=== PATIENT | male | born 1955 | race African-American/Black ===

== ENCOUNTER 2019-02-09 08:49 | Inpatient (IN) ==
[2019-02-09] MEDS ORDERED: Naloxone 0.4 MG/ML INJ IVP PRN (10:23)
[2019-02-09] MEDS ORDERED: Ondansetron 4 MG/2 ML VIAL IVP PRN (10:29)
[2019-02-09] MEDS ORDERED: D5% in Water 1,000 ML IVC PRN (10:31)
[2019-02-09] MEDS ORDERED: *HR* Dextrose 50 % in Water (Syg) 50 ML SYRINGE IVP PRN (10:31)
[2019-02-09] MEDS ORDERED: Dextrose Gel 15 GM/37.5 ML TUBE PO PRN ×2 (10:31)
--- NOTE | 2019-02-09 10:48 | Internal Med History&Physical ---
Date of Encounter: 02/09/19 Time of Encounter: 10:32 Internal Medicine - H&P: HPI Chief complaint: Abd pain Admitted From: Emergency Dept History of present illness: Yandel Sales is a 63 M w hx HTN, DM2, depression, who p/w abd pain. Pain began more almost 3 months ago and is mostly in LLQ. Episodic and crampy in nature but in last 2 days became significantly worse. Did have some N/V yesterday. Denies fevers, CP, diarrhea, hematochezia or melena, or rashes. He states that during the time of his abd pain, he's noted almost 20 lb weight loss and endorses night sweats. Was seeing his PCP and was supposed to have CT done but this has not yet happened. At time of my interview, he states he is comfortable but scared/worried and mostly just wants to know about his pancreas. In the OSH ED, vitals T 99.2, HR 81-96, RR 16-22, BP 150-160s/80s, satting high 90s% on RA. Labs notable for WBC 9, Hb 12, INR 1.2, Cr 1.56, BG 133, lipase 10. Urine was unremarkable. CT abd w contrast showed proximal sigmoid diverticulitis without obvious abscess but with tiny air bubbles unclear if nearby diverticuli or if microperf. It also showed nearby low attenuation area concerning for either intraluminal stool or edema or early abscess. Additionally, there is an abnormal soft tissue area in upper abd encasing the proximal celiac axis continguous with pancreatic head suspicious for neoplasm. Patient was given 2L fluid, started on cipro/flagyl, and transferred to [place]. Past Med Surg Social Fam HX - Past Medical History Medical history: diabetes, hypertension Psychiatric history: depression - Past Surgical History Additional surgical history: left foot sx x 2 - Social History Smoking Status: Never smoker Smokeless Tobacco Status: No Alcohol use: none Drug use: none Internal Medicine - H&P: Meds NovoLOG 0 units SQ TID 07/13/15 [History] Paroxetine [Paxil] 40 mg PO DAILY 07/13/15 [History] Insulin DETEMIR [Levemir Flextouch] 65 unit SQ DAILY 06/11/16 [History] Meclizine [Antivert] 25 mg PO TID PRN #20 tablet 06/11/16 [Rx] Promethazine [Phenergan] 12.5 mg PO Q8HR PRN #20 tablet 06/11/16 [Rx] amLODIPine [Norvasc] 10 mg PO DAILY 06/11/16 [History] Allergy/AdvReac Type Severity Reaction Status Date / Time [facility] Allergy Hives Verified 07/13/15 12:02 All Systems PM: A 10-system review of systems was performed and is negative for pertinent findings except as documented above in the HPI. - Constitutional Vitals: Vital Signs Temp Pulse Resp BP Pulse Ox 02/09/19 11:01 98.6 F 75 15 144/67 97 Intake and Output 02/08/19 02/09/19 02/09/19 23:59 07:59 15:59 Output Total 0 / 0 Balance 0 / 0 Output: Urine 0 / 0 Other: Weight 78.925 kg Patient Weight 02/09/19 23:59 Weight 78.925 kg Exam: General: NAD, good eye contact, well appearing, mild strabismus Head: Atraumatic, normocephalic. Face symmetric Eyes: EOMI, sclerae anicteric ENT: Mucous membranes dry. Normal oral mucosa and dentition. Trachea midline. Thoracic: No visible chest wall deformities. Normal breath sounds b/l, no wheezing or crackles Cardio: Normal S1 and S2, regular rate and rhythm, no murmurs. Abdomen: Soft, nondistended, bowel sounds present. No rebound or guarding. Does have mild tenderness lower and lower left abd Extremities: Warm, well perfused. DP pulses 2+ b/l. No clubbing, cyanosis. No edema Skin: Intact. No rashes, bruises, or ulcers Neuro: Awake, fully oriented. Good memory, concentration, attention. Speech fluent. CN II-XII grossly intact. Strength 5/5 in b/l UE and LE - Summary of Assessment and Plan Summary of Assessment and Plan: Yandel Sales is a 63 M w hx HTN, DM2, depression, who p/w acute on chronic abd pain, N/V, and CT showing diverticular inflammation concerning for acute diverticulitis, all in context of subacute weight loss and night sweats with CT showing possible posterior pancreatic head mass concerning for malignancy. Acute diverticulitis: abd tender LLQ but not firm/rigid - empiric cipro/flagyl - clear liquid diet - low threshold to re-scan and/or to involve GenSurg given possibility of early complications seen on CT 02/09 Likely mass of pancreatic head: - MRI pancreas protocol DIANNA on CKD2: truly unknown baseline but only previous measure if Cr 1.3, on admit is 1.55, will monitor and hydrate HTN: uncontrolled, not on home meds, possibly 2/2 pain so will wait to start HTN med like amlodipine until evaluation when pain better controlled DM2: diabetic diet, home basal plus SSI Depression: home paxil PPx: lovenox Activity: up ad janis FEN: ADA clears, MIVF LR@100 x2L Lines: PIV Consults: Code: Full Dispo: patient requires inpatient eval and management at this time. Anticipate 2-3 days. Will be homegoing
[2019-02-09] MEDS: Insulin LISPRO 300 UNITS/3 ML VIAL SQ SCH ×3 (11:42→20:27)
[2019-02-09] MEDS: *HR* OxyCODONE Immed Rel 5 MG TABLET PO PRN (12:06)
[2019-02-09] MEDS: Ringers Solution, Lactated 1,000 ML IVC SCH ×2 (12:06→23:43)
[2019-02-09] MEDS: metroNIDAZOLE 500 MG TABLET PO SCH ×2 (15:49→20:27)
[2019-02-09] MEDS: Acetaminophen 325 MG TABLET PO PRN (15:49)
[2019-02-10 04:36] LABS: Hematocrit 32.6 % (37.5-50.1); Hemoglobin 10.6 g/dL (12.9-16.9); Mean Corpuscular HGB Conc 32.5 g/dL (31.6-35.5); Mean Corpuscular Hemoglobin 27.2 pg (28.0-33.3); Mean Corpuscular Volume 83.8 fL (83.0-100.0); Mean Platelet Volume 10.2 fL (9.4-12.4); Platelet Count 138 K/mcL (140-400); Red Blood Count 3.89 M/mcL (4.19-5.50); White Blood Count 8.8 K/mcL (4.3-11.1)
[2019-02-10 04:55] LABS: Alanine Aminotransferase 91 Units/L (7-52); Albumin 3.2 g/dL (3.5-5.7); Albumin/Globulin Ratio 1.3 (1.1-2.2); Alkaline Phosphatase 67 Units/L (34-104); Aspartate Amino Transferase 57 Units/L (13-39); BUN/Creatinine Ratio 10 (6-26); Bilirubin,Total 0.9 mg/dL (0.3-1.0); Blood Urea Nitrogen 12 mg/dL (8-23); Calcium 8.5 mg/dL (8.6-10.3); Carbon Dioxide 29 mEq/L (23-29); Chloride 105 mEq/L (98-107); Globulin 2.4 g/dL (2.4-3.5); Glucose 110 mg/dL (70-105); Magnesium 1.8 mg/dL (1.6-2.6); Osmolality,Calculated 284 (280-300); Phosphorous 2.3 mg/dL (2.7-4.5); Potassium 4.1 mEq/L (3.5-5.1); Sodium 137 mEq/L (136-145); Total Protein 5.6 g/dL (6.4-8.9); eGFR For African Americans > 60 (> 60); eGFR For Non-African Americans > 60 (> 60)
[2019-02-10] MEDS: *HR* Enoxaparin 40 MG/0.4 ML SYRINGE SQ SCH (05:16)
[2019-02-10] MEDS: Insulin LISPRO 300 UNITS/3 ML VIAL SQ SCH ×4 (09:03→21:02)
[2019-02-10] MEDS: metroNIDAZOLE 500 MG TABLET PO SCH ×3 (09:14→20:57)
[2019-02-10] MEDS: *HR* OxyCODONE Immed Rel 5 MG TABLET PO PRN (09:14)
--- NOTE | 2019-02-10 11:20 | Oncology Inp Consult Note ---
<Frankie Geronimo - Last Filed: 02/10/19 16:23> Date of Encounter: 02/10/19 Time of Encounter: 16:23 - Data of Consult Requesting Physician: Bravo Morris Primary Care Provider: Yasmine Gruber Medications and Allergies Amlodipine Besylate 10 mg PO DAILY 02/10/19 [History] Ergocalciferol (VITAMIN D2) [Vitamin D2] 50,000 unit PO SA 02/10/19 [History] Insulin Degludec [Tresiba Flextouch U-200] 70 - 80 units SQ HS 02/10/19 [History] PARoxetine HCl [Paroxetine HCl] 40 mg PO DAILY 02/10/19 [History] Pravastatin Sodium 10 mg PO HS 02/10/19 [History] Valsartan 320 mg PO DAILY 02/10/19 [History] Zolpidem [Ambien] 10 mg PO HS 02/10/19 [History] Allergy/AdvReac Type Severity Reaction Status Date / Time sitagliptin [From ] Allergy Hives Verified 07/13/15 12:02 Consult Discharge Plan - Plan Referrals: Yasmine Gruber [Primary Care Provider] - Inpatient Charges Provider: Dr. Devi Geronimo Consult - Inpatient: [id number] - Attending Attestation I examined this patient and my medical decision-making was reviewed with the Advanced Practice Nurse. I agree with the documented findings, disposition and treatment plan as described except to the extent set forth below. Abdominal pain improving Will obtain a CT Neck/Chest w/ contrast to complete staging Will check iron studies, B12 level, folate level, CA 19-9, AF GI c/s for EUS/ biopsy of pancreatic mass Thank you for the consult. <Angelita Martin - Last Filed: 02/10/19 16:55> Date of Encounter: 02/10/19 Assessment and Plan (1) Pancreatic mass Status: Acute Assessment and plan: MRI of the abdomen which revealed an infiltrative mass extending from the posterior margin of the pancreatic head and uncinate process encases accessory hepaticopancreatic branch artery, mass measures 28 x 37 mm, presumed metastatic adenopathy at the lorenzo hepatis, no discrete suspicious hepatic lesion involvement is evident, suboptimal exam degraded by breathing motion. AST-57 ALT-91 Total bili-0.9 Alk Phos- 67 Plan: Check 19-9, AFP and CEA Anemia workup-B12, folate, iron, ferritin Consult GI for EUS with FNA biopsy--may need to hold off on bx until diver ticulitis improved-appreciate GI recs CT chest/neck with IV contrast for staging Continue oxycodone as needed for pain, zofran as needed for nausea (2) Diverticulitis large intestine Status: Acute Assessment and plan: CT abd w contrast showed proximal sigmoid diverticulitis without obvious abscess but with tiny air bubbles unclear if nearby diverticuli or if microperf. Appears to be clinically improving with conservative management and IV ATB Hospitalist team reviewed scans with surgery-recommend re-imaging if no improvement, continue ATB Per surgery, patient should have colonoscopy completed in 4 weeks to ensure no malignant involvement of diverticular region Qualifiers: Diverticulitis bleeding: without bleeding Diverticulitis complication: unspecified complication status Qualified Code(s): K57.32 - Diverticulitis of large intestine without perforation or abscess without bleeding - Data of Consult Patient: new to practice Consult date: 02/10/19 Requesting Physician: Estuardo Silver Primary Care Provider: Yasmine Gruber - Consult Narrative Reason for consult: pancreatic mass History of present illness: 63 year old male with past medical history significant for hypertension, diabetes mellitus type 2, depression, hereditary RP/legally blind presented to ER with worsening abdominal pain. States that he has had diffuse but mostly left lower quadrant abdominal pain that began nearly 3 months ago. Significantly worsened over the past several days leading to presentation to the emergency room. He has had some nausea and vomiting recently over the past several days. Denies fever, chest pain, diarrhea, hematochezia or melena. He does endorse history of a 20 pound weight loss and night sweats. He had a CT of the abdomen in the ER which noted proximal sigmoid diverticulitis without obvious abscess but with unclear findings of tiny air bubble second represent nearby diverticula versus tiny focus of extraluminal air. Additionally, this noted an abnormal soft tissue focus in the upper dimensional encasing the proximal celiac axis concerning for pancreatic head mass. This was followed by a MRI of the abdomen which revealed an infiltrative mass extending from the posterior margin of the pancreatic head and uncinate process encases accessory hepaticopancreatic branch artery, mass measures 28 x 37 mm, presumed metastatic adenopathy at the lorenzo hepatis, no discrete suspicious hepatic lesion involvement is evident, suboptimal exam degraded by breathing motion. Mr. Sales denies any personal family history of cancer. He is a nonsmoker, denies alcohol use. He is disabled due to his possible history of hereditary retinitis pigmentosa and is legally blind due to this. He does not drive, but remains active at home, goes shopping etc. Past Med Surg Social Fam HX - Past Medical History Medical history: diabetes, hypertension Psychiatric history: depression - Past Surgical History Additional surgical history: left foot sx x 2 - Social History Smoking Status: Never smoker Smokeless Tobacco Status: No Alcohol use: none Drug use: none Constitutional: Present: anorexia, fatigue, malaise, night sweats, weight loss. Absent: chills, fever(s) Eyes: Present: as per HPI, other (legally blind, h/o hereditary RP) Cardiovascular: Absent: chest pain Respiratory: Absent: cough, dyspnea Gastrointestinal: Present: as per HPI, abdominal pain, nausea, vomiting. Absent: hematemesis, hematochezia, loose stools, melena, odynophagia Genitourinary: Absent: dysuria, hematuria Musculoskeletal: Present: muscle weakness Integumentary: Absent: rash, wounds Neurological: Absent: dizziness, focal weakness, headache(s) Psychiatric: Present: as per HPI Endocrine: Present: as per HPI, fatigue Hematologic/Lymphatic: Present: as per HPI. Absent: lymphadenopathy Oncology - Exam - Constitutional General appearance: cooperative, no acute distress, no febrile - Head Head exam: Present: atraumatic - ENT ENT exam: Present: mucous membranes moist, normal oropharynx - Respiratory Respiratory exam: Present: CTAB. Absent: respiratory distress - Cardiovascular Cardiovascular exam: Present: RRR, +S1, +S2 - GI/Abdominal GI/Abdominal exam: Present: normal bowel sounds, soft, tenderness (diffuse tenderness). Absent: rebound, rigid - Extremities Exam Extremities exam: Present: normal inspection. Absent: calf tenderness
--- NOTE | 2019-02-10 11:54 | Internal Med Progress Note ---
Hospitalist Progress Note - Encounter Date of Encounter: 02/10/19 Time of Encounter: 11:52 - Subjective Interval History: Patient feels improved today compared to when he came in. Worried about his prognosis given probable pancreatic cancer. - Exam Vitals: Temp Pulse Resp BP Pulse Ox 99.1 F 72 15 121/67 97 02/10/19 07:06 02/10/19 07:06 02/10/19 07:06 02/10/19 07:06 02/10/19 07:06 Exam: General: Ill-appearing and in no acute distress HEENT: No erythema of posterior pharynx. No exudates. Lymphatics: No mandibular or cervical lymphadenopathy Cardiovascular: RRR. No murmurs. No chest wall tenderness. Lungs: Clear to auscelltation bilaterally. Regular chest rise. Abdomen: Mild LLQ tenderness. No rebound or gaurding. Nl bowel sounds. Extremities: No edema. 2+ pulses radial and pedal pulses Skin: No rahses, abrasions, or contusions. Nl cap refill. Psych: Nl attention. A&Ox3 Neuro: sole splitter II-XII intact. 5/5 strength. Sensation to light touch and pinprick intact. - Assessment and Plan (1) Diverticulitis large intestine Current Visit: No Status: Acute Assessment and Plan: Patient presented with subacute onset of left lower quadrant pain in the setting of stable vitals on admission (did not meet sepsis criteria), left lower quad rant abdominal pain on exam, and CT abd w contrast showed proximal sigmoid diverticulitis without obvious abscess but with tiny air bubbles unclear if nearby diverticuli or if microperf. -Clinically improved with IV antibiotics -Reviewed CT scan with general surgery and believe patient will do well with antibiotics alone PLAN: - Cipro/flagyl - Clear liquid diet - Re-image if not improving - Per surgery, patient should have colonoscopy completed in 4 weeks to ensure no malignant involvement of diverticular region (2) Pancreatic mass Current Visit: Yes Status: Acute Assessment and Plan: Patient presents 6 months of weight loss and night sweats and found to have a pancreatic head mass on imaging of the abdomen. -MRI of abdomen with infiltrative mass extending from posterior margin of pancreatic head to uncinate process encasing accessory hepatopancreatic branch artery with metastatic adenopathy -Discussed with general surgery. Likely would not be a surgical candidate but will discuss case at tumor board -Consult that oncology for further recommendations as well PLAN: - Consult to oncology, appreciate recommendations (3) Blindness Current Visit: Yes Status: Acute DVT Prophylaxis: LMWH Internal Medicine: Result - Labs CBC & Chem 7: 02/10/19 04:13 02/10/19 04:13 Labs: Short CBC 02/10/19 Range/Units 04:13 WBC 8.8 (4.3-11.1) K/mcL Hgb 10.6 L (12.9-16.9) g/dL Hct 32.6 L (37.5-50.1) % Plt Count 138 L (140-400) K/mcL BMP 02/10/19 04:13 Sodium 137 Potassium 4.1 Chloride 105 Carbon Dioxide 29 BUN 12 Creatinine 1.19 Glucose 110 H Calcium 8.5 L Liver Function 02/10/19 Range/Units 04:13 Total Bilirubin 0.9 (0.3-1.0) mg/dL AST 57 H (13-39) Units/L ALT 91 H (7-52) Units/L Alkaline Phosphatase 67 (34-104) Units/L Albumin 3.2 L (3.5-5.7) g/dL - Impressions Impressions Abdomen MRI 02/09/19 11:10 IMPRESSION: 1. Infiltrative mass extending from the posterior margin of the pancreatic head and uncinate process encases accessory hepaticopancreatic branch artery. 2. Presumed metastatic adenopathy at the lorenzo hepatis. 3. No discrete suspicious hepatic lesion evident. 4. Mild intra and extrahepatic bile duct dilatation status post cholecystectomy typical of reservoir effect. 5. Suboptimal exam with many of the image series degraded by breathing motion blurring detail. D/ / Sina Velasquez / Sina Velasquez Interpreting Provider: Sina Velasquez Consult Discharge Plan - Plan Referrals: Yasmine Gruber [Primary Care Provider] - (1) Diverticulitis large intestine Qualifiers: Diverticulitis bleeding: without bleeding Diverticulitis complication: unspecified complication status Qualified Code(s): K57.32 - Diverticulitis of large intestine without perforation or abscess without bleeding
[2019-02-10] MEDS ORDERED: Isovue-370 500 ML BOTTLE IVP ONE (14:00)
[2019-02-10] MEDS: Acetaminophen 325 MG TABLET PO PRN (20:59)
[2019-02-11 05:46] LABS: % Iron Saturation 9 % (20-55); Iron 18 mcg/dL (65-175); Lactate Dehydrogenase 120 Units/L (140-271); Transferrin 143 mg/dL (203-362)
[2019-02-11] MEDS: *HR* Enoxaparin 40 MG/0.4 ML SYRINGE SQ SCH (05:49)
[2019-02-11 06:05] LABS: Ferritin 579 ng/mL (20-250)
[2019-02-11 06:10] LABS: Folate 9.3 ng/mL (3.0-16.0)
[2019-02-11 09:30] LABS: Basophils % 0.3 %; Eosinophils # 0.3 K/mcL (0.0-0.6); Eosinophils % 3.9 %; Hematocrit 35.4 % (37.5-50.1); Hemoglobin 11.4 g/dL (12.9-16.9); Immature Granulocytes % 0.3 % (0-4); Lymphocytes # 0.7 K/mcL (0.6-4.6); Lymphocytes % 10.5 %; Mean Corpuscular HGB Conc 32.2 g/dL (31.6-35.5); Mean Corpuscular Hemoglobin 26.8 pg (28.0-33.3); Mean Corpuscular Volume 83.3 fL (83.0-100.0); Mean Platelet Volume 10.3 fL (9.4-12.4); Monocytes # 0.5 K/mcL (0.0-1.3); Monocytes % 7.7 %; Platelet Count 159 K/mcL (140-400); Red Blood Count 4.25 M/mcL (4.19-5.50); Red Cell Distribution Width 13.6 % (11.5-14.5); Segmented Neutrophils % 77.3 %; White Blood Count 6.5 K/mcL (4.3-11.1)
[2019-02-11 09:50] LABS: Alanine Aminotransferase 55 Units/L (7-52); Albumin 3.4 g/dL (3.5-5.7); Albumin/Globulin Ratio 1.2 (1.1-2.2); Alkaline Phosphatase 73 Units/L (34-104); Aspartate Amino Transferase 20 Units/L (13-39); BUN/Creatinine Ratio 10 (6-26); Bilirubin,Total 0.5 mg/dL (0.3-1.0); Blood Urea Nitrogen 12 mg/dL (8-23); Calcium 8.9 mg/dL (8.6-10.3); Carbon Dioxide 28 mEq/L (23-29); Chloride 103 mEq/L (98-107); Globulin 2.9 g/dL (2.4-3.5); Glucose 139 mg/dL (70-105); Osmolality,Calculated 286 (280-300); Sodium 137 mEq/L (136-145); Total Protein 6.3 g/dL (6.4-8.9); eGFR For African Americans > 60 (> 60); eGFR For Non-African Americans 58 (> 60)
[2019-02-11] MEDS: Insulin LISPRO 300 UNITS/3 ML VIAL SQ SCH ×4 (10:08→20:56)
[2019-02-11] MEDS: metroNIDAZOLE 500 MG TABLET PO SCH ×3 (10:11→20:57)
[2019-02-11] MEDS: Iron Sucrose Complex 400 MG in 0.9 % Sodium Chloride 250 ML IVPB SCH (11:52)
--- NOTE | 2019-02-11 12:13 | Gastroenterology Consult Note ---
<Bravo Bradford - Last Filed: 02/11/19 12:10> Date of Encounter: 02/11/19 Time of Encounter: 10:30 - Assessment and plan (1) Pancreatic mass Current Visit: Yes Status: Acute Assessment and plan: CT A/P showed diverticulitis involving the proximal sigmoid colon but with tiny bubbles of air adjacent to diseased colon may be related to diverticula, however tiny focus of extraluminal air not totally excluded, abnormal soft tissue attenuation in the upper abdomen encasing proximal celiac axis and immediately contiguous with the posterior aspect of the pancreatic head concerning for neoplasm. MRI showed infiltrative mass extending from the posterior margin of the pancreatic head and uncinate process encases accessory hepaticopancreatic branch artery, presumed metastatic adenopathy at the lorenzo hepatis, no discrete suspicious hepatic lesion. TB 0.9, AST 57, ALT 91, AP 67, CEA 1.9. AFP and CA 19-9 pending. Plan for EUS with FNA today. Keep patient NPO. Patient received dose of Lovenox today, will discuss with Dr. Singh. (2) Diverticulitis large intestine Current Visit: No Status: Acute Assessment and plan: Noted on CT. Continue Cipro and Flagyl. Recommend daily fiber supplement. Consider colonoscopy as outpatient. Qualifiers: Diverticulitis bleeding: without bleeding Diverticulitis complication: unspecified complication status Qualified Code(s): K57.32 - Diverticulitis of large intestine without perforation or abscess without bleeding - Time Spent With Patient Total time spent is greater than 50% in coordination of care (as documented) at patient's floor/unit and/or counseling patient: GI History of Present Illness - Data of Consult Patient: new to practice Consult date: 02/11/19 Requesting Physician: Bravo Morris - Consult Narrative Reason for consult: Pancreatic head mass History of present illness: Mr. Sales is a 63 year old male with PMHx of DM, HTN who presneted to the ED with complaints of worsening abdominal pain, 20 lbs weight loss, and night s weats. No fever, chills, chest pain, shortness of breath, melena, or hematochezia. CT A/P showed diverticulitis involving the proximal sigmoid colon but with tiny bubbles of air adjacent to diseased colon may be related to diverticula, however tiny focus of extraluminal air not totally excluded, abn ormal soft tissue attenuation in the upper abdomen encasing proximal celiac axis and immediately contiguous with the posterior aspect of the pancreatic head concerning for neoplasm. MRI showed infiltrative mass extending from the posterior margin of the pancreatic head and uncinate process encases accessory hepaticopancreatic branch artery, presumed metastatic adenopathy at the lorenzo hepatis, no discrete suspicious hepatic lesion. Patient denies abdominal pain this morning, and reports feeling well today. Procedure: No record NSAIDs: None Anticoagulation: None Past Med Surg Social Fam HX - Past Medical History Medical history: diabetes, hypertension Psychiatric history: depression - Past Surgical History Additional surgical history: left foot sx x 2 - Social History Smoking Status: Never smoker Smokeless Tobacco Status: No Alcohol use: none Drug use: none - Gastrointestinal Gastrointestinal: Present: as per HPI - Constitutional Constitutional: as per HPI - EENT Eyes: as per HPI Ears: Present: as per HPI Nose, mouth and throat: Present: as per HPI - Cardiovascular Cardiovascular ROS: Present: as per HPI - Respiratory Respiratory IM: Present: as per HPI - Genitourinary Genitourinary: Absent: change in color, Urinary frequency - Neurological ROS Neurological GI: Present: as per HPI - Hematologic/Lymphatic Hematologic/Lymphatic pediatric: Present: as per HPI - Musculoskeletal Musculoskeletal ROS GI: Present: as per HPI - Integumentary Integumentary GI: Present: as per HPI - Psychiatric ROS Psychiatric GI: Present: as per HPI - Endocrine Endocrine IM: Present: as per HPI - Constitutional Vitals: Temp Pulse Resp BP Pulse Ox 98.0 F 67 20 171/90 99 02/11/19 11:46 02/11/19 11:46 02/11/19 11:46 02/11/19 11:46 02/11/19 11:46 General appearance: Present: cooperative, A&O X 3, no acute distress, answers questions appropriately - Head Head exam: Present: atraumatic, normocephalic - Eye Eye exam: Present: normal appearance, sclera anicteric - ENT ENT exam: Present: mucous membranes dry - Neck Neck exam general surgery: Present: normal inspection, trachea midline - Respiratory Respiratory exam: Present: CTAB. Absent: rales, rhonchi, wheezes - Cardiovascular Cardiovascular exam: Present: RRR, +S1, +S2 - GI/Abdominal GI/Abdominal exam: Present: soft, no peritoneal signs. Absent: distended, firm, guarding, tenderness - Rectal Rectal exam: Present: deferred - Extremities Exam Extremities exam: Present: warm - Neurological Exam Neurological exam: Present: no focal deficits - Psychiatric Psychiatric exam: Present: normal affect, normal mood - Skin Skin exam: Present: dry, intact, normal color, warm Results - Labs CBC & Chem 7: 02/11/19 09:13 02/11/19 09:13 Labs: Last Result 02/11/19 02/11/19 02/11/19 04:25 04:25 04:25 Calcium Iron 18 L % Saturation 9 L Transferrin 143 L Ferritin 579 H Vitamin B12 254 Folate 9.3 02/11/19 09:13 Calcium 8.9 Iron % Saturation Transferrin Ferritin Vitamin B12 Folate Entire Visit 02/11/19 02/11/19 02/11/19 04:25 04:25 09:13 Hgb 11.4 L Hct 35.4 L Ferritin 579 H Total Bilirubin AST ALT Folate 9.3 02/11/19 09:13 Hgb Hct Ferritin Total Bilirubin 0.5 AST 20 ALT 55 H Folate - Impressions Impressions Chest CT 02/10/19 14:00 IMPRESSION: Trace bilateral pleural effusions with minimal bilateral dependent lower lobe airspace disease, likely atelectasis. No suspicious intrathoracic abnormality. D/ / Letitia Land Cha, MD / Letitia Land Cha, MD Interpreting Provider: Letitia Land Cha, MD Soft Tissue Neck CT 02/10/19 14:00 IMPRESSION: Circumferential wall thickening of the upper esophagus. Correlate for esophagitis. Otherwise, no acute abnormality identified. D/ / Dez Ruff MD / Dez Ruff MD Interpreting Provider: Dez Ruff MD Consult Discharge Plan - Plan Referrals: Yasmine Gruber [Primary Care Provider] - <David Singh - Last Filed: 02/11/19 18:26> Date of Encounter: 02/11/19 Time of Encounter: 13:00 - Time Spent With Patient Total time spent is greater than 50% in coordination of care (as documented) at patient's floor/unit and/or counseling patient: GI History of Present Illness - Data of Consult Requesting Physician: Bravo Morris - Consult Narrative History of present illness: Mr. Sales is a 63 year old male - Constitutional Vitals: Temp Pulse Resp BP Pulse Ox 99.4 F 81 16 155/81 94 02/11/19 18:21 02/11/19 18:21 02/11/19 18:21 02/11/19 18:21 02/11/19 18:21 Results - Labs CBC & Chem 7: 02/11/19 09:13 02/11/19 09:13 Labs: Last Result 02/11/19 09:13 Calcium 8.9 Entire Visit 02/11/19 02/11/19 09:13 09:13 Hgb 11.4 L Hct 35.4 L Total Bilirubin 0.5 AST 20 ALT 55 H - Attending Attestation I have personally performed a face to face evaluation on this patient. I have reviewed and agree with the care plan. History and Exam by me shows: Patient seen and his imaging has been reviewed. Complaining of pain in the left lower quadrant no upper abdominal pain. On examination: Left lower quadrant tenderness assessment; patient with pancreatic head mass #2 diverticulitis. Recommendation: Continue IV antibiotic for his diverticulitis patient a colonoscopy done by Dr. Tamayo at [facility] in July. EUS with FNA of the pancreatic mass today
--- NOTE | 2019-02-11 12:42 | Anesthesia Evaluation PreOp ---
Date of Encounter: 02/11/19 Time of Encounter: 13:57 - Past History Planned Operation: EUS Cardiac History: HTN Pulmonary History: Denies Any Significant HX GIS INSTRUCTOR History: Other (depression, hereditary RP) Other Medical History: Diabetes Type II, Other (pancreatic mass) Anesthesia History: No Prior Anesthetic Complications, Past Anesthesia Alcohol Use: none Drug use: none Medications and Allergies Amlodipine Besylate 10 mg PO DAILY 02/10/19 [History] Ergocalciferol (VITAMIN D2) [Vitamin D2] 50,000 unit PO SA 02/10/19 [History] Insulin Degludec [Tresiba Flextouch U-200] 70 - 80 units SQ HS 02/10/19 [History] PARoxetine HCl [Paroxetine HCl] 40 mg PO DAILY 02/10/19 [History] Pravastatin Sodium 10 mg PO HS 02/10/19 [History] Valsartan 320 mg PO DAILY 02/10/19 [History] Zolpidem [Ambien] 10 mg PO HS 02/10/19 [History] Allergy/AdvReac Type Severity Reaction Status Date / Time sitagliptin [From Jun] Allergy Hives Verified 07/13/15 12:02 - Meds/Allergy Pre-op Review Medications Reviewed: Yes Allergies Reviewed: Yes Beta Blockers on Current Med List: No Anesthesia Results - Labs 02/11/19 09:13 02/11/19 09:13 - Imaging EKG: report reviewed Anesthesia Exam Vital Signs/O2 Sat/Glucose, Most Recent Temp Pulse Resp BP Pulse Ox 98.0 F 67 20 171/90 99 02/11/19 11:46 02/11/19 11:46 02/11/19 11:46 02/11/19 11:46 02/11/19 11:46 Blood Glucose* 162 Weight: 78 kg NPO (# of Hours): > 8 hr - HEENT Pupil (Motor): Pupils equal Mallampati: II Teeth: Normal Oral Opening: Greater than 3 - GIS INSTRUCTOR LOC: Oriented - Cardiac Rhythm: Regular Murmur: None - Pulmonary Breath Sounds: bilateral Clear Respiratory Effort: Symmetrical Anesthesia Assess/Plan ASA Score: 2 Level of consciousness: Cooperative, Oriented Anesthetic Plan: General Monitoring Plan: Standard Monitors Recovery Plan: PACU
[2019-02-11] MEDS ORDERED: *HR* Propofol 200 MG/20 ML VIAL IVP ONE (13:11)
[2019-02-11] MEDS ORDERED: *HR* FentaNYL (PF) 100 MCG/2 ML VIAL ONE (13:11)
[2019-02-11] MEDS ORDERED: *HR* Succinylcholine 200 MG/10 ML VIAL IVP ONE (13:12)
[2019-02-11] MEDS ORDERED: Lidocaine -MPF 2% 2 ML VIAL ONE (13:12)
[2019-02-11] MEDS ORDERED: Lidocaine -MPF 4% 5 ML AMPUL ONE (13:15)
[2019-02-11] MEDS ORDERED: Dexamethasone 4 MG/ML VIAL ONE (13:31)
[2019-02-11] MEDS ORDERED: Ondansetron 4 MG/2 ML VIAL ONE (13:31)
[2019-02-11] MEDS ORDERED: Albuterol 2.5 MG/3 ML NEBULIZER IH ONE (13:58)
[2019-02-11] MEDS ORDERED: *HR* FentaNYL (PF) 100 MCG/2 ML VIAL IVP PRN (13:58)
[2019-02-11] MEDS ORDERED: *HR* Promethazine 25 MG/ML VIAL IVP PRN (13:58)
[2019-02-11] MEDS ORDERED: Ondansetron 4 MG/2 ML VIAL IVP ONE (13:58)
[2019-02-11] MEDS: 0.9 % Sodium Chloride 1,000 ML IVC SCH (14:15)
--- NOTE | 2019-02-11 15:02 | Internal Med Progress Note ---
Hospitalist Progress Note - Encounter Date of Encounter: 02/11/19 Time of Encounter: 15:00 - Subjective Interval History: Patient feels fine this morning. Abdominal pain has largely resolved. - Exam Vitals: Temp Pulse Resp BP Pulse Ox 98.0 F 67 18 175/95 97 02/11/19 13:54 02/11/19 13:54 02/11/19 13:54 02/11/19 13:54 02/11/19 13:54 Exam: General: Ill-appearing and in no acute distress HEENT: No erythema of posterior pharynx. No exudates. Lymphatics: No mandibular or cervical lymphadenopathy Cardiovascular: RRR. No murmurs. No chest wall tenderness. Lungs: Clear to auscelltation bilaterally. Regular chest rise. Abdomen: Mild LLQ tenderness. No rebound or gaurding. Nl bowel sounds. Extremities: No edema. 2+ pulses radial and pedal pulses Skin: No rahses, abrasions, or contusions. Nl cap refill. Psych: Nl attention. A&Ox3 Neuro: tab machine operator II-XII intact. 5/5 strength. Sensation to light touch and pinprick intact. - Assessment and Plan (1) Diverticulitis large intestine Current Visit: No Status: Acute Assessment and Plan: Patient presented with subacute onset of left lower quadrant pain in the setting of stable vitals on admission (did not meet sepsis criteria), left lower quadrant abdominal pain on exam, and CT abd w contrast showed proximal sigmoid diverticulitis without obvious abscess but with tiny air bubbles unclear if nearby diverticuli or if microperf. -Clinically improved with IV antibiotics -Reviewed CT scan with general surgery and believe patient will do well with antibiotics alone -Doing well - will switch patient to oral antibiotics PLAN: - Cipro/flagyl IV --> oral - Clear liquid diet --> General diet - Per surgery, patient should have colonoscopy completed in 4 weeks to ensure no malignant involvement of diverticular region (2) Pancreatic mass Current Visit: Yes Status: Acute Assessment and Plan: Patient presents 6 months of weight loss and night sweats and found to have a pancreatic head mass on imaging of the abdomen. -MRI of abdomen with infiltrative mass extending from posterior margin of pancreatic head to uncinate process encasing accessory hepatopancreatic branch artery with metastatic adenopathy -Discussed with general surgery. Likely would not be a surgical candidate but will discuss case at tumor board -Consulted oncology, recommend biopsy: Going for biopsy today with GI PLAN: - Biopsy today - Laboratory w/u per oncology - Oncology following, appreciate recommendations (3) Blindness Current Visit: Yes Status: Acute DVT Prophylaxis: LMWH Internal Medicine: Result - Labs CBC & Chem 7: 02/11/19 09:13 02/11/19 09:13 Labs: Short CBC 02/11/19 Range/Units 09:13 WBC 6.5 (4.3-11.1) K/mcL Hgb 11.4 L (12.9-16.9) g/dL Hct 35.4 L (37.5-50.1) % Plt Count 159 (140-400) K/mcL Neutrophils # 5.0 (1.6-8.9) K/mcL BMP 02/11/19 09:13 Sodium 137 Potassium 4.0 Chloride 103 Carbon Dioxide 28 BUN 12 Creatinine 1.25 Glucose 139 H Calcium 8.9 Liver Function 02/11/19 Range/Units 09:13 Total Bilirubin 0.5 (0.3-1.0) mg/dL AST 20 (13-39) Units/L ALT 55 H (7-52) Units/L Alkaline Phosphatase 73 (34-104) Units/L Albumin 3.4 L (3.5-5.7) g/dL - Impressions Impressions Chest CT 02/10/19 14:00 IMPRESSION: Trace bilateral pleural effusions with minimal bilateral dependent lower lobe airspace disease, likely atelectasis. No suspicious intrathoracic abnormality. D/ / Letitia Land Cha, MD / Letitia Land Cha, MD Interpreting Provider: Letitia Land Cha, MD Soft Tissue Neck CT 02/10/19 14:00 IMPRESSION: Circumferential wall thickening of the upper esophagus. Correlate for esophagitis. Otherwise, no acute abnormality identified. D/ / Dez Ruff MD / Dez Ruff MD Interpreting Provider: Dez Ruff MD Consult Discharge Plan - Plan Referrals: Yasmine Gruber [Primary Care Provider] - (1) Diverticulitis large intestine Qualifiers: Diverticulitis bleeding: without bleeding Diverticulitis complication: unspecified complication status Qualified Code(s): K57.32 - Diverticulitis of large intestine without perforation or abscess without bleeding
[2019-02-12] MEDS: *HR* Enoxaparin 40 MG/0.4 ML SYRINGE SQ SCH (05:59)
[2019-02-12] MEDS: Insulin LISPRO 300 UNITS/3 ML VIAL SQ SCH ×3 (07:25→16:33)
[2019-02-12] MEDS: Iron Sucrose Complex 400 MG in 0.9 % Sodium Chloride 250 ML IVPB SCH (07:28)
[2019-02-12] MEDS: metroNIDAZOLE 500 MG TABLET PO SCH ×2 (07:32→13:56)
[2019-02-12] MEDS ORDERED: amLODIPine 5 MG TABLET PO SCH (09:00)
[2019-02-12] MEDS ORDERED: Valsartan 160 MG TABLET PO SCH (09:00)
--- NOTE | 2019-02-12 09:55 | Anesthesia Evaluation Post Op ---
Date of Encounter: 02/11/19 Time of Encounter: 15:10 - Vital Signs Vital Signs: Vital Signs/O2 Sat/Glucose, Most Recent Temp Pulse Resp BP Pulse Ox 98.0 F 68 17 153/85 96 02/12/19 06:57 02/12/19 06:57 02/12/19 06:57 02/12/19 06:57 02/12/19 06:57 Blood Glucose* 220 - Lungs Lungs: Clear Ascult./Percussion - Airway Airway: Non-obstructed - Cardiovascular Regular Rate - Mental Status Mental Status: Baseline Status - Pain Pain Scale: 0 - Nausea Vomiting Nausea Vomiting: Not Present - Hydration Hydration: NPO - Discharge PostOp Status: Transfer Patient to floor
[2019-02-12] MEDS: 0.9 % Sodium Chloride 1,000 ML IVC SCH (10:15)
--- NOTE | 2019-02-12 11:16 | Gastroenterology Progress Note ---
<Johanne Dubon - Last Filed: 02/12/19 11:14> Date of Encounter: 02/12/19 Time of Encounter: 11:14 - Assessment and plan (1) Pancreatic mass Current Visit: Yes Status: Acute Assessment and plan: CT A/P showed diverticulitis involving the proximal sigmoid colon but with tiny bubbles of air adjacent to diseased colon may be related to diverticula. Abnormal soft tissue attenuation in the upper abdomen encasing proximal celiac axis and immediately contiguous with the posterior aspect of the pancreatic head concerning for neoplasm. MRI showed infiltrative mass extending from the posterior margin of the pancreatic head and uncinate process encases accessory hepaticopancreatic branch artery, presumed metastatic adenopathy at the lorenzo hepatis, no discrete suspicious hepatic lesion. Elevated ferritin appears to have iron deficiency anemia of chronic disease AFP within normal limits at 2 CA 19-9 within normal limits at 35 and CEA 1.9 Underwent EUS with FNA yesterday Pathology was at bedside to review biopsy samples concerning for malignancy Cytology still pending Would benefit from ERCP later outpatient given concerning for obstruction due to the large size of the mass - Time Spent With Patient Total time spent is greater than 50% in coordination of care (as documented) at patient's floor/unit and/or counseling patient: - Subjective Interval history: Mr. Sales was seen at bedside this morning was sitting comfortably in a chair. He was inquiring about his ultrasound-guided pancreatic biopsy yesterday. We discussed at length of what the mass appeared to look like under the ultrasound and concerning for malignancy although needs to be confirmed with cytology. He had no further questions denied any developed pain nausea or emesis. - Constitutional Vitals: Temp Pulse Resp BP Pulse Ox 98.0 F 68 17 153/85 96 02/12/19 06:57 02/12/19 06:57 02/12/19 06:57 02/12/19 06:57 02/12/19 06:57 General appearance: Present: cooperative, A&O X 3, no acute distress, answers questions appropriately - Head Head exam: Present: atraumatic, normal inspection - Eye Eye exam: Present: EOMI, sclera anicteric. Absent: conjunctival injection - ENT ENT exam: Present: mucous membranes moist, normal oropharynx - Neck Neck exam general surgery: Present: full ROM, trachea midline. Absent: tenderne ss - Respiratory Respiratory exam: Present: CTAB. Absent: rhonchi, wheezes - Cardiovascular Cardiovascular exam: Present: RRR, +S1, +S2 - GI/Abdominal GI/Abdominal exam: Present: normal bowel sounds, soft. Absent: tenderness - Skin Skin exam: Present: dry, intact Results - Labs CBC & Chem 7: 02/11/19 09:13 02/11/19 09:13 Labs: Entire Visit 02/10/19 09:26 CA 19-9 Antigen 35 Consult Discharge Plan - Plan Referrals: Eben Carter MD [Partnered Physician] - (Web request. Office will call patient with date and time of appointment. Thank you) Yasmine Gruber [Primary Care Provider] - (Called and left office a message to call patient with date and time of appointment. Thank you) Prescriptions: Ciprofloxacin [Cipro] 500 mg PO BID 8 Days #16 tablet metroNIDAZOLE [Flagyl] 500 mg PO TID 8 Days #24 tablet Psyllium Husk [Metamucil] 0.52 gm PO DAILY #60 capsule Polyethylene Glycol 3350 [MiraLAX] 17 gm PO DAILY #60 powd.pack <David Singh - Last Filed: 02/12/19 16:44> Date of Encounter: 02/12/19 Time of Encounter: 15:00 - Time Spent With Patient Total time spent is greater than 50% in coordination of care (as documented) at patient's floor/unit and/or counseling patient: - Constitutional Vitals: Temp Pulse Resp BP Pulse Ox 98.2 F 68 18 147/74 97 02/12/19 11:53 02/12/19 11:53 02/12/19 11:53 02/12/19 11:53 02/12/19 11:53 Results - Labs CBC & Chem 7: 02/11/19 09:13 02/11/19 09:13 Labs: Entire Visit 02/10/19 09:26 CA 19-9 Antigen 35 - Attending Attestation I examined this patient and my medical decision-making was reviewed with the Resident Physician. I agree with the documented findings, disposition and treatment plan as described except to the extent set forth below. Patient seen no active issues no abdominal pain on examination alert awake and oriented. Assessment: Patient with the diverticulitis and also pancreatic mass. Status post biopsy of the pancreatic mass. Rec: Follow path follow up with oncology
[2019-02-12 11:57] VITALS: BP 147/74
--- NOTE | 2019-02-12 16:25 | Discharge Summary ---
- NOTES TO OUTPATIENT PROVIDER Notes to Outpatient Provider: Patient was admitted with left lower quadrant abdominal pain and was diagnosed with diverticulitis in the proximal sigmoid colon with no evidence of abscess or intraperitoneal free air. Tiny bubbles of air were noted close of the diverticula, discussed with general surgery who recommended to repeat CT scan of the abdomen in 4 weeks giving clinical improvement on antibiotics. She was placed on aggressive bowel regimen with MiraLAX and fibers. He also noted to have pancreatic mass concerning for malignancy on MRI of the abdomen. He had EUS and FNA done for biopsy and pending results. He is supposed to follow up with oncology after discharge. He will also need colonoscopy once his active infection resolves. Orders not resulted at time of discharge: Pending orders 02/09/19 17:36 Culture,Blood [BC] Stat 02/11/19 15:14 Surgical Pathology [PTH] Routine Date of Encounter: 02/12/19 Time of Encounter: 10:00 - Discharge Diagnosis (1) Diverticulitis large intestine Priority: Primary Status: Resolved Qualifiers: Diverticulitis bleeding: without bleeding Diverticulitis complication: unspecified complication status Qualified Code(s): K57.32 - Diverticulitis of large intestine without perforation or abscess without bleeding (2) Pancreatic mass Priority: Secondary Status: Acute (3) Blindness Priority: Secondary Status: Acute Qualifiers: Right eye visual impairment category: right - unspecified impairment Left eye visual impairment category: left - unspecified blindness Qualified Code(s): H54.40 - Blindness, one eye, unspecified eye Hospital course: Mr. Sales is a 63 year old male who came into the hospital with left lower quadrant abdominal pain and was treated for acute diverticulitis with Cipro and Flagyl with significant improvement in his symptoms. CT scan of the abdomen and presentation could not rule out small abscess formation for original surgery recommended follow-up CT scan of the abdomen in 4 weeks. He was also noted to have pancreatic mass with possible metastatic adenopathy at the lorenzo hepatis. GI was consulted and patient had EUS with FNA with pending biopsy results. Oncology was consulted and patient will follow-up as outpatient with their team. Also need colonoscopy once his acute infection resolves. Today patient is clinically stable and hemodynamically stable. He was able to tolerate regular diet without problem. He will be discharged home in stable condition. Discharge discussed with: patient - Time Spent with Patient Total time spent providing and/or coordinating discharge services: 42 minutes - Discharge Medications Prescriptions: New Ciprofloxacin [Cipro] 500 mg PO BID 8 Days #16 tablet metroNIDAZOLE [Flagyl] 500 mg PO TID 8 Days #24 tablet Psyllium Husk [Metamucil] 0.52 gm PO DAILY #60 capsule Polyethylene Glycol 3350 [MiraLAX] 17 gm PO DAILY #60 powd.pack Continued Amlodipine Besylate 10 mg PO DAILY PARoxetine HCl [Paroxetine HCl] 40 mg PO DAILY Zolpidem [Ambien] 10 mg PO HS Valsartan 320 mg PO DAILY Pravastatin Sodium 10 mg PO HS Insulin Degludec [Tresiba Flextouch U-200] 70 - 80 units SQ HS Ergocalciferol (VITAMIN D2) [Vitamin D2] 50,000 unit PO SA Home Medications: Amlodipine Besylate 10 mg PO DAILY 02/10/19 [History] Ergocalciferol (VITAMIN D2) [Vitamin D2] 50,000 unit PO SA 02/10/19 [History] Insulin Degludec [Tresiba Flextouch U-200] 70 - 80 units SQ HS 02/10/19 [History] PARoxetine HCl [Paroxetine HCl] 40 mg PO DAILY 02/10/19 [History] Pravastatin Sodium 10 mg PO HS 02/10/19 [History] Valsartan 320 mg PO DAILY 02/10/19 [History] Zolpidem [Ambien] 10 mg PO HS 02/10/19 [History] Ciprofloxacin [Cipro] 500 mg PO BID 8 Days #16 tablet 02/12/19 [Rx] Polyethylene Glycol 3350 [MiraLAX] 17 gm PO DAILY #60 powd.pack 02/12/19 [Rx] Psyllium Husk [Metamucil] 0.52 gm PO DAILY #60 capsule 02/12/19 [Rx] metroNIDAZOLE [Flagyl] 500 mg PO TID 8 Days #24 tablet 02/12/19 [Rx] Allergies/Adverse Reactions: Allergy/AdvReac Type Severity Reaction Status Date / Time sitagliptin [From ] Allergy Hives Verified 07/13/15 12:02 Date of admission: 02/09/19 10:04 Primary care physician: Yasmine Gruber Consults: 02/09/19 18:24 Consult to Oncology [CONS] Routine Consulting Provider: [facility] Reason for Consult: pancreatic head mass Call Completed: No 02/10/19 07:41 Consult to Oncology [CONS] Routine Consulting Provider: [facility] [place] Reason for Consult: new diagnosis of pancreatic cancer Call Completed: Yes 02/10/19 11:21 Consult to Gastroenterology [CONS] Routine Consulting Provider: [facility] [place] Reason for Consult: pancreatic head mass- EUS with FNA Call Completed: Yes 02/10/19 14:37 Consult to Gastroenterology [CONS] Routine Consulting Provider: [facility] [place] Reason for Consult: EUS with FNA bx Call Completed: Yes 02/12/19 08:24 Consult to Occupational Therapy [CONS] Routine Comment: Evaluate, develop and implement POC Reason for Consult: evaluate the need for skilled placement Does patient have active BEDREST order?: No Is patient medically & hemodynamically stable?: Yes Consult to Physical Therapy [CONS] Routine Comment: Evaluate, develop and implement POC Reason for Consult: evaluate the need for skilled placement Does patient have active BEDREST order?: No Is patient medically & hemodynamically stable?: Yes - Constitutional Vitals: Temp Pulse Resp BP Pulse Ox 98.2 F 68 18 147/74 97 02/12/19 11:53 02/12/19 11:53 02/12/19 11:53 02/12/19 11:53 02/12/19 11:53 Exam: General: Ill-appearing and in no acute distress HEENT: No erythema of posterior pharynx. No exudates. Lymphatics: No mandibular or cervical lymphadenopathy Cardiovascular: RRR. No murmurs. No chest wall tenderness. Lungs: Clear to auscelltation bilaterally. Regular chest rise. Abdomen: no tenderness. No rebound or gaurding. Nl bowel sounds. Extremities: No edema. 2+ pulses radial and pedal pulses Skin: No rahses, abrasions, or contusions. Nl cap refill. Psych: Nl attention. A&Ox3 Neuro: chart picker II-XII intact. 5/5 strength. Sensation to light touch and pinprick intact. - Patient Status Disposition: Home, Self-Care Condition: Good Functional capacity at discharge: independent ambulation Overall status at discharge: patient is back to baseline - Discharge Instructions Follow Up With: Eben Carter MD [Partnered Physician] - (Web request. Office will call patient with date and time of appointment. Thank you) Yasmine Gruber [Primary Care Provider] - (Called and left office a message to call patient with date and time of appointment. Thank you) - Diet and Activity Activity: resume usual activities as tolerated Diet: diabetic diet, low salt diet
== END 2019-02-12 18:09 | disposition home or self-care (01) | DRG 244 ==
LOC: 3ANU → OBSVTOIN 10:04 → SUATTDRO 10:04
PROVIDERS: ADMIT Internal Medicine; ATTEND Internal Medicine
PROC: ENDOEUS (2019-02-11 14:00)